=== PATIENT | male | born 1970 | race Caucasian/White ===

== ENCOUNTER 2022-09-12 06:38 | Emergency (ER) | payer SELFPAY ==
[~2022-09-12] VITALS: Ht 177.8 cm; Wt 133.0 kg
--- OUTSIDE RECORDS SUMMARY | 2022-09-12 06:41 | XMS ---
PreManage Notification: GIOVANNA GASTON Security Liability Claims Adjuster Events No recent Security Events currently on file CRITERIA MET - PDMP CARE PROVIDERS REBEL DELGADO Internal Medicine 11/01/2018-Current PHONE: [phone] Debbi has no Care Guidelines for this patient. EBrian VISIT COUNT (12 MO.) 1 URMILA Shields TOTAL 1 NOTE: Visits indicate total known visits. ED/UCC VISIT TRACKING (12 MO.) 09/12/2022 06:39 U[facility]ILA [facility]cal[facility] OR TYPE: Emergency COMPLAINT: - FEEL LIKE PASSING OUT INPATIENT VISIT TRACKING (12 MO.) No inpatient visits to display in this time frame [id number]
[2022-09-12] MEDS ORDERED: INDOMETHACIN50 MG PO (06:57)
[2022-09-12] MEDS ORDERED: ST. JOSEPH ASPI81 MG PO (06:58)
[2022-09-12] MEDS ORDERED: ALLOPURINOL100 MG PO (06:58)
--- NOTE | 2022-09-12 21:39 | EKG ---
[facility] [address] [place] [address] Signed Sinus rhythm with premature atrial complexes with aberrant conduction Nonspecific T wave abnormality Abnormal ECG No previous ECGs available Confirmed by Micki Cartagena MD () on 09/12/2022 9:39:18 PM Electronically Signed By: MICKI CARTAGENA MD 09/12/22 2139 PATIENT NAME: GIOVANNA GASTON Electrocardiogram DATE OF : 70 PHYSICIAN: MICKI CARTAGENA MD REPORT #: [id number] REPORT IS CONFIDENTIAL AND NOT TO BE RELEASED WITHOUT AUTHORIZATION
== END 2022-09-12 08:41 | disposition home or self-care (01) ==
LOC: ED 06:38
DX: R55 Syncope and collapse (principal); M10.9 Gout, unspecified; E78.00 Pure hypercholesterolemia, unspecified; Z79.899 Other long term (current) drug therapy; Z79.82 Long term (current) use of aspirin
CPT/HCPCS: 36415; 71045; 80053; 84484; 85025; 85379; 93005; 93010; 99284-25